=== PATIENT | female | born 1975 | race Caucasian/White ===

== ENCOUNTER → 2017-07-13 | Outpatient (CLI) | payer OTHER | LOC: FIMAGING 15:06 | PROVIDERS: ATTEND Advanced Practice Midwife | DX: O36.4XX0 Maternal care for intrauterine death, not applicable or unspecified (principal); Z3A.09 9 weeks gestation of pregnancy ==

== ENCOUNTER 2017-08-07 14:26 | Observation (INO) | payer OTHER ==
[2017-08-07] MEDS ORDERED: NS 1,000 ML IV ONE ×2 (15:13→17:00)
[2017-08-07 15:19] LABS: % IMMATURE GRANULYOCYTES 0.2 % (0.0-1.1); ABSOLUTE IMMATURE GRANULOCYTES 0.02 10^3/uL (0.00-0.10); ADD DIFF? NO; ADD MORPH? NO; ADD SCAN? NO; ATYPICAL LYMPHOCYTE FLAG 0 (0-99); FRAGMENT RBC FLAG 0 (0-99); HEMATOCRIT 31.5 % (38.0-47.0); LEFT SHIFT FLG 0 (0-99); LIPEMIA HEMOLYSIS FLAG 90 (0-99); MEAN CELL HEMOGLOBIN 30.9 pg (27.9-34.1); MEAN CELL HEMOGLOBIN CONCENTR. 34.9 g/dL (32.4-36.7); MEAN CELL VOLUME 88.5 fL (81.5-99.8); MEAN PLATELET VOLUME 9.1 fL (8.7-11.7); PLATELET CLUMPS FLAG 10 (0-99); PLATELET COUNT 248 10^3/uL (150-400); RED BLOOD CELL COUNT 3.56 10^6/uL (4.18-5.33); RED CELL DISTRIBUTION WIDTH 12.3 % (11.5-15.2)
--- NOTE | 2017-08-07 15:21 | EDPHY ---
H & P Stated Complaint: cytotec this morning, heavy menstrual bleeding, near syncopal Time Seen by Provider: 08/07/17 14:58 HPI/ROS: Chief Complaint: Miscarriage HPI: 41-year-old who is diagnosed with an incomplete miscarriage 3 and half weeks ago by ultrasound at 7 weeks gestation. She has been trying homeopathic methods to complete the miscarriage without any results. This morning, at the advice of her twenty one dealer, she took side of tech at 5:15 a.m.. She began having bleeding at 8:15 a.m.. At about 930 this morning she did passed products of conception. Between 12 noon and 2 o'clock this afternoon she has soaked 6-7 pads. She did at 2 o'clock had an episode of lightheadedness where she felt like she was going to pass out. She discussed this with the twenty one dealer was advised to present to the emergency department. She has required methargen for a prior miscarriage in after her previous deliveries. Does not have a history of a blood clotting disorder that she is aware of. No family history of blood clotting disorders. She has not lost consciousness. Chest pain or shortness of breath. No nausea or vomiting. Currently having some low pelvic cramping about a 4/10. ROS: 10 point Review of Systems is negative except as noted in the HPI. PMH: Miscarriage Social History: No smoking, occasional alcohol, no recreational drug use Family History: non-contributory Physical Exam: Gen: Awake, Alert, No Distress HEENT: Nose: no rhinorrhea Eyes: PERRLA, EOMI Mouth: Moist mucosa Neck: Supple, no JVD Chest: nontender, lungs clear to auscultation Heart: S1, S2 normal, no murmur Abd: Soft, moderate suprapubic tenderness, no guarding Back: no CVA tenderness, no midline tenderness Ext: no edema, non-tender Skin: no rash Neuro: CN II-XII intact, Sensation grossly intact, Strength 5/5 in bilateral upper and lower extremities - Personal History LMP (Females 10-55): Now Current Tetanus Diphtheria and Acellular Pertussis (TDAP): Yes Tetanus Vaccine Date: AT [facility] - Medical/Surgical History Hx Asthma: No Hx Chronic Respiratory Disease: No Hx Diabetes: No Hx Cardiac Disease: No Hx Renal Disease: No Hx Cirrhosis: No Hx Alcoholism: No Other PMH: anal simmons w/ botox injection, knee surgery, facial surgery - Social History Smoking Status: Never smoked Constitutional: Initial Vital Signs Temperature (C) 36.7 C 08/07/17 14:30 Heart Rate 71 08/07/17 14:30 Respiratory Rate 18 08/07/17 14:30 Blood Pressure 116/71 08/07/17 14:30 O2 Sat (%) 97 08/07/17 14:30 O2 Delivery Mode Room Air Allergies/Adverse Reactions: No Known Allergies Allergy (Verified 05/02/13 06:24) Home Medications: Medication Instructions Recorded NK [No Known Home Meds] 08/07/17 Medical Decision Making - Diagnostics Imaging Results: Imaging Impressions Pelvic/Renal Ultrasound 08/07/17 15:14 Impression: 1. No intrauterine . 2. No adnexal masses or, ovarian torsion or significant free fluid. 3. Blood products in the endometrium consistent with incomplete . Findings and recommendations discussed with Emergency Department physician, Samir Elliott MD at 16:02 hour, 08/07/2017. Final report concurs with initial preliminary interpretation. ED Course/Re-evaluation: Pelvic exam shows blood in the vaginal vault with tissue protruding from the cervical os. This was removed by me. Patient's H&H are 11 and 31.5. Patient is Rh positive. Fluids are running. Ultrasound shows a 17 mm thickened endometrium. Patient is feeling improved after removal of the tissue. I have discussed with SIMONE Velasquez. She will admit to her service for further care. - Data Points Laboratory Results: Laboratory Results 08/07/17 14:50 08/07/17 14:50 08/07/17 08/07/17 08/07/17 14:50 14:50 14:50 WBC 8.02 10^3/uL 10^3/uL (3.80-9.50) RBC 3.56 10^6/uL L 10^6/uL (4.18-5.33) Hgb 11.0 g/dL L g/dL (12.6-16.3) Hct 31.5 % L % (38.0-47.0) MCV 88.5 fL fL (81.5-99.8) MCH 30.9 pg pg (27.9-34.1) MCHC 34.9 g/dL g/dL (32.4-36.7) RDW 12.3 % % (11.5-15.2) Plt Count 248 10^3/uL 10^3/uL (150-400) MPV 9.1 fL fL (8.7-11.7) Neut % (Auto) 60.3 % % (39.3-74.2) Lymph % (Auto) 31.9 % % (15.0-45.0) [place] % (Auto) 5.5 % % (4.5-13.0) Eos % (Auto) 1.6 % % (0.6-7.6) Baso % (Auto) 0.5 % % (0.3-1.7) Nucleat RBC Rel Count 0.0 % % (0.0-0.2) Absolute Neuts (auto) 4.83 10^3/uL 10^3/uL (1.70-6.50) Absolute Lymphs (auto) 2.56 10^3/uL 10^3/uL (1.00-3.00) Absolute Monos (auto) 0.44 10^3/uL 10^3/uL (0.30-0.80) Absolute Eos (auto) 0.13 10^3/uL 10^3/uL (0.03-0.40) Absolute Basos (auto) 0.04 10^3/uL 10^3/uL (0.02-0.10) Absolute Nucleated RBC 0.00 10^3/uL 10^3/uL (0-0.01) Immature Gran % 0.2 % % (0.0-1.1) Immature Gran # 0.02 10^3/uL 10^3/uL (0.00-0.10) Sodium 135 mEq/L mEq/L (134-144) Potassium 3.7 mEq/L mEq/L (3.5-5.2) Chloride 101 mEq/L mEq/L (97-110) Carbon Dioxide 24 mEq/l mEq/l (22-31) Anion Gap 10 mEq/L mEq/L (8-16) BUN 10 mg/dL mg/dL (7-23) Creatinine 0.7 mg/dL mg/dL (0.6-1.0) Estimated GFR > 60 Glucose 108 mg/dL H mg/dL (70-100) Calcium 8.6 mg/dL mg/dL (8.5-10.4) Patient ABO/Rh A POSITIVE Antibody Screen NEGATIVE Medications Given: Discontinued Medications Sodium Chloride (Ns) 1,000 mls @ 0 mls/hr IV ONCE ONE; Wide Open PRN Reason: Protocol Stop: 08/07/17 15:14 Last Admin: 08/07/17 15:27 Dose: 1,000 mls Departure - Departure Disposition: [facility] Inpatient Acute Clinical Impression: Incomplete miscarriage Condition: Fair Referrals: Candace Pineda MD [Primary Care Provider] - As per Instructions
[2017-08-07 15:24] LABS: ANION GAP 10 mEq/L (8-16); CALCIUM 8.6 mg/dL (8.5-10.4); CARBON DIOXIDE 24 mEq/l (22-31); CHLORIDE 101 mEq/L (97-110); CREATININE 0.7 mg/dL (0.6-1.0); GLOMERULAR FILTRATION RATE > 60; GLUCOSE 108 mg/dL (70-100); POTASSIUM 3.7 mEq/L (3.5-5.2); SODIUM 135 mEq/L (134-144)
--- NOTE | 2017-08-07 15:31 | CPEKG ---
Heart Rate: 57 RR Interval: 1053 P-R Interval: 156 QRSD Interval: 108 QT Interval: 436 QTC Interval: 425 P Geraldine: 67 QRS Geraldine: 52 T Wave Geraldine: 36 EKG Severity - NORMAL ECG - EKG Impression: SINUS RHYTHM Electronically Signed By: Delphine Khan 07-Aug-2017 21:12:31
[2017-08-07 18:00] VITALS: O2SAT 99
[2017-08-07 20:48] LABS: % IMMATURE GRANULYOCYTES 0.3 % (0.0-1.1); ABSOLUTE IMMATURE GRANULOCYTES 0.03 10^3/uL (0.00-0.10); ADD DIFF? NO; ADD MORPH? NO; ADD SCAN? NO; ATYPICAL LYMPHOCYTE FLAG 0 (0-99); FRAGMENT RBC FLAG 0 (0-99); HEMATOCRIT 25.9 % (38.0-47.0); LEFT SHIFT FLG 0 (0-99); LIPEMIA HEMOLYSIS FLAG 90 (0-99); MEAN CELL HEMOGLOBIN CONCENTR. 34.7 g/dL (32.4-36.7); MEAN CELL VOLUME 89.3 fL (81.5-99.8); MEAN PLATELET VOLUME 9.3 fL (8.7-11.7); PLATELET CLUMPS FLAG 10 (0-99); PLATELET COUNT 251 10^3/uL (150-400); RED CELL DISTRIBUTION WIDTH 12.4 % (11.5-15.2)
[2017-08-07] MEDS ORDERED: IRON POLYSAC/IRON HEME 28 MG TAB PO SCH (21:15)
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
--- NOTE | 2017-08-08 08:34 | SOAPPROG ---
SOAP Progress Note Assessment/Plan: Assessment: 41 yo WF HD#2 s/p observation overnight following bleeding from medical management of incomplete . Doing well this morning. Plan: Discharge home today. 08/08/17 08:31 Subjective: Patient feels better this morning. She is tolerating PO diet. She is ambulating without faintness or weakness. She denies significant vaginal bleeding since moved upstairs from ED. She is ready for discharge home. Objective: Vital Signs Temp Pulse Resp BP Pulse Ox 36.4 C 69 16 106/54 L 99 08/08/17 02:38 08/08/17 02:38 08/08/17 02:38 08/08/17 02:38 08/07/17 17:59 Laboratory Results 08/07/17 20:30 08/07/17 08/08/17 08/09/17 05:59 05:59 05:59 Intake Total 3500 Output Total 2500 Balance 1000 Physical Exam - Physical Exam General Appearance: alert, no apparent distress Neck: normal inspection Respiratory: lungs clear, normal breath sounds Cardiac/Chest: normal peripheral pulses, regular rate, rhythm Abdomen: normal bowel sounds, non-tender, soft Pelvic Exam: deferred Rectal: deferred Extremities: normal range of motion, non-tender Neuro/Psych: no motor/sensory deficits, alert, normal mood/affect, oriented x 3 ICD10 Worksheet Patient Problems: Problems Problem Status Onset Incomplete miscarriage Acute
--- NOTE | 2017-08-08 08:35 | PDDCSUM ---
Discharge Summary Discharge Summary: DATE OF ADMISSION: 08/07/2017 DATE OF DISCHARGE: 08/08/2017 ADMITTING DIAGNOSES: 1. Incomplete (9.4 weeks by LMP, 7.4 weeks size fetus by US) 2. Syncope DISCHARGE DIAGNOSES: 1. Incomplete (9.4 weeks by LMP, 7.4 weeks size fetus by US) 2. Syncope ADMITTING PHYSICIAN: Madina Kang MD DISCHARGING PHYSICIAN: Terrance Cade MD HISTORY OF PRESENT ILLNESS/HOSPITAL COURSE:Clary Alvarez is a 41 year-old who was 9 weeks gestational age when diagnosed with a missed . She had US on 07/13/2017 that revealed 7 week-sized fetus with no heart activity. She was treated by midwives at [facility], starting with expectant management then medical management (Misoprostol). She took first dose of misoprostol on 08/07 which was followed by painful cramping and bleeding. She presented to [facility] ED since she continued to pass large blood clots and was feeling weak. In ED, she received IVF hydration, a pelvic exam where POC at external os were removed, and an US which revealed a thickened endometrial lining. She was seen by Dr. Kang in ED and admitted for continued IVF hydration , repeat H&H (Hct: 31%-->25%), and to rest and monitor syncopal symptoms. She did well overnight. This morning, hospital day #2, she is resting comfortably in bed, ambulating without faintness, tolerating PO diet. She reports only small vaginal spotting when up to urinate. She desires discharge home. PROCEDURES PERFORMED: 1. Observation overnight 2. IV Fluid Hydration 3. Repeat Hemoglobin/Hematocrit COMPLICATIONS: None. DISCHARGE INSTRUCTIONS AND FOLLOW-UP: Discharge home. Follow-up in 1-2 weeks for follow-up sonogram to confirm resolution of incomplete . DIET: Advance as tolerated. ACTIVITY: As tolerated. No intercourse until follow-up visit. MEDICATIONS: Patient will use OTC iron supplementation.
[2017-08-08 13:17] VITALS: BP 118/72; PULSE 68; RESP 18; TEMP 98.6
== END 2017-08-08 10:10 | disposition home or self-care (01) ==
LOC: FLD 18:05
PROVIDERS: ADMIT Obstetrics & Gynecology; ATTEND Obstetrics & Gynecology Gynecology
PROC: 10D17ZZ Extraction of Products of Conception, Retained, Via Natural or Artificial Opening (ICD-10-PCS; principal; 2017-08-07)
PROC: 3E0337Z Introduction of Electrolytic and Water Balance Substance into Peripheral Vein, Percutaneous Approach (ICD-10-PCS; 2017-08-07)
DX: O03.89 Complete or unspecified spontaneous abortion with other complications (principal); R55 Syncope and collapse; E86.9 Volume depletion, unspecified
CPT/HCPCS: 76856; 93005; G0378

== ENCOUNTER → 2017-08-16 | Outpatient (CLI) | payer OTHER | LOC: CIMAGING 17:41 | PROVIDERS: ATTEND Advanced Practice Midwife | DX: O02.1 Missed abortion (principal) | CPT/HCPCS: 76856-PO ==

== ENCOUNTER → 2019-02-07 | Outpatient (CLI) | payer OTHER | LOC: FIMAGING 12:04 | PROVIDERS: ATTEND Advanced Practice Midwife | DX: O09.522 Supervision of elderly multigravida, second trimester (principal) ==